=== PATIENT | female | born 1930 | race Caucasian/White ===

== ENCOUNTER 2016-12-15 12:22 | Emergency (ER) | payer MEDICARE ==
[~2016-12-15] VITALS: Ht 167.6 cm; Wt 70.3 kg
--- NOTE | ~2016-12-15 | CR72 ---
[facility] A Service of [facility] RADIOLOGY TEXT RESULTS PATIENT: JENIFER LORENZ LOCATION: [facility] : 32 UNIT #: [id number] AGE: [address]: Aidan Patel MD SEX: F ORDER DR: [id number] [facility] [address] [place], [place] [address] [id number] E MR#: [id number] Acc #: [id number] NAME: JENIFER LORENZ. : 1930 SEX: F STUDY DATE/TIME: 12/15/2016 17:07 UNIT: [facility] ROOM: STUDY DESCRIPTION: CR Chest Single View Portable Attending Physician: Aidan Patel M.D. Ordering Physician: Aidan Patel M.D. Primary Care Physician: Gregory Centeno M.D. MEDICAL IMAGING REPORT This report is preliminary unless electronic signature is present EXAM Chest x-ray single-view portable. HISTORY Short of air with activity, hypertension, starting 12/15/2016. History of a fall. COMMENT 2 frontal views of the chest reviewed, time 17:07. COMPARISON Comparison is from 06/01/2011. FINDINGS The films are lordotic. Heart size is normal. There is calcification of the aortic knob and some mild ectasia of the descending thoracic aorta. There is evidence for old granulomatous disease. There is no acute-appearing parenchymal infiltrate, acute congestive failure, pleural effusion or pneumothorax. There are some age-related interstitial changes likely. IMPRESSION 1. No active disease is seen in the chest. Dictated by... Jazmyne Matamoros M.D. THIS IS AN ELECTRONICALLY VERIFIED REPORT Jazmyne Matamoros M.D. at 12/16/2016 10:22 AM SAC/gz TD: 12/16/2016 08:08 JOB #: [id number] [facility] A Service of [facility] RADIOLOGY TEXT RESULTS PATIENT: JENIFER LORENZ LOCATION: [facility] #: [id number] : 34 UNIT #: [id number] AGE: [address]: Aidan Patel MD SEX: F ORDER DR: MEDICAL IMAGING REPORT Page 1 of 1 COPY
--- NOTE | ~2016-12-15 | CT71 ---
[facility] A Service of [facility] RADIOLOGY TEXT RESULTS PATIENT: JENIFER LORENZ LOCATION: [facility] : 32 UNIT #: [id number] AGE: [address]: Aidan Patel MD SEX: F ORDER DR: [id number] [facility] [address] [place], [place] [address] [id number] E MR#: [id number] Acc #: [id number] NAME: JENIFER LORENZ. : 1930 SEX: F STUDY DATE/TIME: 12/15/2016 16:48 UNIT: [facility] ROOM: STUDY DESCRIPTION: CT Head Wo Contrast Attending Physician: Aidan Patel M.D. Ordering Physician: Aidan Patel M.D. Primary Care Physician: Gregory Centeno M.D. MEDICAL IMAGING REPORT This report is preliminary unless electronic signature is present EXAM Noncontrast CT head, 12/15/2016 HISTORY 86-year-old female who fell today with complaints of posterior neck pain, headache and facial pain. COMPARISON Noncontrast CT head, 10/21/2005 FINDINGS No acute intracranial hemorrhage, mass lesion, mass effect or midline shift is seen. No evidence of acute or evolving infarct. Mild age-appropriate parenchymal atrophy. Ventricular configuration is within normal limits. Patchy paranasal sinus mucosal thickening with small bilateral maxillary sinus air-fluid levels. No displaced calvarial fracture is identified. Mastoid air cells are clear. IMPRESSION 1. No acute intracranial findings. 2. Mild age-appropriate atrophy. 3. Paranasal sinus disease. Dictated by... Joaquina Banks M.D. THIS IS AN ELECTRONICALLY VERIFIED REPORT Joaquina Banks M.D. at 12/16/2016 2:21 PM [place] TD: 12/16/2016 09:06 JOB #: [id number] [facility] A Service of [facility] RADIOLOGY TEXT RESULTS PATIENT: JENIFER LORENZ [facility] #: [id number] : 34 UNIT #: [id number] AGE: [address]: Aidan Patel MD SEX: F ORDER DR: MEDICAL IMAGING REPORT Page 1 of 1 COPY
--- NOTE | ~2016-12-15 | EKG ---
PATIENT: JENIFER LORENZ UNIT #: [id number] Ventricular Rate: 66 BPM Atrial Rate: 66 BPM P-R Interval: 152 ms QRS Duration: 72 ms Q-T Interval: 388 ms QTC Calculation(Bezet): 406 ms P Tullos: 60 degrees Calculated R Tullos: 17 degrees Calculated T Tullos: 26 degrees Diagnosis Line: Normal sinus rhythm with sinus arrhythmia Diagnosis Line: Septal infarct , age undetermined Diagnosis Line: Abnormal ECG Diagnosis Line: Diagnosis Line: Confirmed by SOPHIA ANTHONY MD ([id number]) on 12/15/2016 Diagnosis Line: 6:59:49 PM INTERPRETING MD: RAJ BURGER
--- NOTE | ~2016-12-15 | CT52 ---
[facility] A Service of [facility] RADIOLOGY TEXT RESULTS PATIENT: JENIFER LORENZ LOCATION: [facility] : 32 UNIT #: [id number] AGE: [address]: Aidan Patel MD SEX: F ORDER DR: [id number] [facility] [address] [place], [place] [address] [id number] E MR#: [id number] Acc #: [id number] NAME: JENIFER LORENZ. : 1930 SEX: F STUDY DATE/TIME: 12/15/2016 17:56 UNIT: [facility] ROOM: STUDY DESCRIPTION: CT Cervical Spine Wo Cont Attending Physician: Aidan Patel M.D. Ordering Physician: Aidan Patel M.D. Primary Care Physician: Gregory Centeno M.D. MEDICAL IMAGING REPORT This report is preliminary unless electronic signature is present EXAM CT cervical spine without contrast. DATE 12/15/2016 HISTORY 86-year-old female who fell today with posterior neck pain. COMPARISON None. PROCEDURE 2 mm noncontrast axial images through the cervical spine. Sagittal and coronal reformatted images were obtained. This CT exam was performed with one or more of the following radiation dose reduction techniques: automatic exposure control, adjustment of mA and/or kV according to patient size, and iterative reconstruction. FINDINGS Moderate diminished disc height at C5-6. Craniocervical junction is intact. At C2-3, mild posterior disc osteophyte formation, moderate left facet arthropathy, but no high-grade canal or foraminal stenosis. At C3-4, broad-based posterior disc osteophyte formation, severe left facet arthropathy, mild right facet arthropathy. Borderline canal stenosis. Severe left neural foraminal narrowing. At C4-5, broad-based posterior disc osteophyte formation with left uncovertebral spurring, severe left facet arthropathy and moderate right [facility] A Service of [facility] RADIOLOGY TEXT RESULTS PATIENT: JENIFER LORENZ LOCATION: [facility] : 32 UNIT #: [id number] AGE: [address]: Aidan Patel MD SEX: F ORDER DR: facet arthropathy. There is mild canal stenosis and moderate severe left neural foraminal narrowing. Mild right neural foraminal narrowing. At C5-6, broad-based posterior disc osteophyte formation with bilateral uncovertebral spurring and moderate bilateral facet arthropathy. There is moderate canal stenosis and severe bilateral neural foraminal narrowing. At C6-7, broad-based posterior disc osteophyte formation with bilateral tubal spurring and mild right greater left facet arthropathy. There is moderate canal stenosis and moderate bilateral neural foraminal narrowing. At C7-T1, no significant disc bulge, canal or foraminal stenosis is seen. There are old fractures of the C6 and C7 spinous processes. Benign calcified granulomatous change in the right upper lobe. Mild bilateral carotid bulb calcifications. IMPRESSION 1. No acute cervical spine findings. 2. Old C6 and C7 spinous process fractures. 3. Multilevel advanced degenerative changes with advanced loss of disc height at C5-6. There is moderate canal stenosis at C5-6 and C6-7. Varying degrees of neural foraminal narrowing, thought to be greatest on the left at C3-4, left at C4-5, bilaterally at C5-6. Dictated by... Joaquina Banks M.D. THIS IS AN ELECTRONICALLY VERIFIED REPORT Joaquina Banks M.D. at 12/16/2016 2:21 PM ARCELIA/chidi TD: 12/16/2016 09:10 JOB #: [id number] MEDICAL IMAGING REPORT Page 1 of 1 COPY
--- NOTE | ~2016-12-15 | CT101 ---
[facility] A Service of [facility] RADIOLOGY TEXT RESULTS PATIENT: JENIFER LORENZ LOCATION: [facility] : 32 UNIT #: [id number] AGE: [address]: Aidan Patel MD SEX: F ORDER DR: [id number] [facility] [address] [place], [place] [address] [id number] E MR#: [id number] Acc #: [id number] NAME: JENIFER LORENZ. : 1930 SEX: F STUDY DATE/TIME: 12/15/2016 16:48 UNIT: [facility] ROOM: STUDY DESCRIPTION: CT Maxillofacial Area Wo Cont Attending Physician: Aidan Patel M.D. Ordering Physician: Aidan Patel M.D. Primary Care Physician: Gregory Centeno M.D. MEDICAL IMAGING REPORT This report is preliminary unless electronic signature is present EXAMINATION CT face without contrast. DATE 12/15/2016 HISTORY Fell today while walking, landed on face. Complains of facial pain, headache and posterior neck pain. PROCEDURE 2 mm noncontrast axial images through the face. Sagittal and coronal reformatted images were obtained. This CT exam was performed with one or more of the following radiation dose reduction techniques: automatic exposure control, adjustment of mA and/or kV according to patient size, and iterative reconstruction. FINDINGS No acute facial fracture. No mandibular fracture or temporomandibular joint dislocation. Paranasal sinus disease changes with air-fluid levels in the bilateral maxillary sinuses. Mastoid air cells are clear. Intracranial carotid artery calcifications are noted. Globes appear intact. Severe facet arthropathy on the left at C3-4 and C4-5. Multilevel cervical spine degenerative change. New dense left carotid bulb calcification. IMPRESSION 1. No acute facial fracture. 2. Paranasal sinus disease. 3. Degenerative changes of the cervical spine, with advanced facet arthropathy on the left at C3-4 and C4-5. Dictated by... [facility] A Service [facility] RADIOLOGY TEXT RESULTS PATIENT: JENIFER LORENZ LOCATION: [facility] : 32 UNIT #: [id number] AGE: [address]: Aidan Patel MD SEX: F ORDER DR: Joaquina Banks M.D. THIS IS AN ELECTRONICALLY VERIFIED REPORT Joaquina Banks M.D. at 12/16/2016 2:21 PM Regina/elizabeth TD: 12/16/2016 09:07 JOB #: [id number] MEDICAL IMAGING REPORT Page 1 of 1 COPY
[~2016-12-15 12:22] MED LIST: ALPRAZOLAM PO; ASPIRIN ENTERI325 M1 PO; CALCIUM 600 + D1 TA1 PO; FISH OIL 1,21 CAP.EC PO; LIPITOR20 MG PO; MULTIVITAMIN1 UDCAP PO; TOPROL XL 50 MG50 MG PO; VASERETIC 10-251 TAB PO; VITAMIN C1000 M2 PO; VITAMIN E400 UNI2 PO
[2016-12-15 14:26] LABS: URINE SOURCE CLEAN CATCH
[2016-12-15 14:34] LABS: URINE APPEARANCE CLEAR; URINE BILIRUBIN NEG (NEG); URINE BLOOD TRACE (NEG); URINE COLOR YELLOW; URINE GLUCOSE NEG (NEG); URINE KETONE 1+ (NEG); URINE LEUKOCYTE ESTERASE 2+ (NEG); URINE NITRATE NEG (NEG); URINE PH 5.5 (5-8); URINE PROTEIN NEG (NEG); URINE SPECIFIC GRAVITY 1.016 (1.003-1.035); URINE UROBILINOGEN 0.2 MG/DL (NEG)
[2016-12-15 14:40] LABS: URINE BACTERIA AUWI NEG (NEGATIVE); URINE SQUAMOUS EPITHELIAL CELL NONE SEEN /[HPF]
[2016-12-15 14:45] LABS: CULTURE INDICATED? NO
[2016-12-15 15:15] LABS: BASOPHIL% 0.5 % (0-2.5); EOSINOPHIL% 0.1 % (0.0-7.0); HEMATOCRIT 41.5 % (35.0-45.0); HEMOGLOBIN 14.5 gm/dL (12.0-16.0); LYMPHOCYTE# 0.9 X10e3 (1.0-3.5); LYMPHOCYTE% 12.5 % (17.0-45.0); MEAN CORPUSCULAR HEMOGLOBIN 33.9 PG (28-34); MEAN CORPUSCULAR HGB CONC 34.9 g/dL (30-36); MONOCYTE# 0.4 X10e3 (0-1.0); MONOCYTE% 5.1 % (3.0-12.0); NEUTROPHIL# 6.1 X10e3 (1.5-7.1); NEUTROPHIL% 81.8 % (40-75); PLATELET COUNT 192 X10e3 (140-420); RED BLOOD COUNT 4.28 X10e (3.90-5.30); RED CELL DISTRIBUTION WIDTH 12.3 % (11.0-15.5); WHITE BLOOD COUNT 7.5 X10e3 (4.0-10.5)
[2016-12-15 15:18] LABS: DIFF IND NO
[2016-12-15 15:37] LABS: ALBUMIN SERUM 4.5 g/dL (3.5-5.0); BILIRUBIN, DIRECT 0.1 mg/dL (0.0-0.2); BILIRUBIN,INDIRECT 0.7 mg/dL (0.0-0.9); BILIRUBIN,TOTAL 0.8 mg/dL (0.2-2.0); BUN/CREATININE RATIO 33.33; CALCIUM SERUM 9.7 mg/dL (8.4-10.2); CREATININE SERUM 0.3 mg/dL (0.6-1.4); GLOM FILT RATE Estimated 105.2 mL/min (>60); POTASSIUM 4.1 mmol/L (3.5-5.1); PROTEIN TOTAL SERUM 7.5 g/dL (6.0-8.3)
[2016-12-15 15:56] LABS: POC - TROPONIN <0.05 ng/mL (<=0.05)
== END 2016-12-15 19:12 | disposition home or self-care (01) ==
LOC: EDBD 12:22 → CED 12:22
DX: S09.90XA Unspecified injury of head, initial encounter (principal); S00.83XA Contusion of other part of head, initial encounter; S20.219A Contusion of unspecified front wall of thorax, initial encounter; I10 Essential (primary) hypertension; F17.200 Nicotine dependence, unspecified, uncomplicated; E07.9 Disorder of thyroid, unspecified; W01.0XXA Fall on same level from slipping, tripping and stumbling without subsequent striking against object, initial encounter; Y92.9 Unspecified place or not applicable
CPT/HCPCS: 36415; 70450; 70486; 71010; 72125; 80048; 80076; 81003; 82553; 84484; 85025; 93005; 99284